=== PATIENT | male | born 1960 | race African-American/Black ===

== ENCOUNTER 2019-01-19 07:46 | Inpatient (IN) ==
--- NOTE | 2018-06-30 15:39 | History and Physical Report ---
DATE OF ADMISSION: 07/05/2018 CHIEF COMPLAINT: Left hip pain. HISTORY OF PRESENT ILLNESS: The patient is a 57-year-old incarcerated gentleman presented to our office for evaluation of the left hip pain and disability. X-rays revealed severe, end-stage osteoarthritis. Due to ongoing pain and disability, he now desires to proceed with left total hip arthroplasty. PAST MEDICAL HISTORY: Hypertension, hypercholesterolemia, type 1 diabetes. PAST SURGICAL HISTORY: Right ALEXA, appendectomy. MEDICATIONS: Amlodipine 5 mg daily, aspirin 81 mg daily, cholestyramine 1 packet daily, docusate sodium 100 mg twice daily, lisinopril 10 mg twice daily, Humulin R insulin as directed, Lantus insulin as directed, glucose daily as needed. ALLERGIES: No known drug allergies. SOCIAL HISTORY AND REVIEW OF SYSTEMS: Noncontributory. PHYSICAL EXAMINATION: GENERAL: Well-nourished, well-developed male who appears stated age. HEENT: Normocephalic, atraumatic, extraocular movements intact, oropharynx pink and moist. NECK: Supple without adenopathy. LUNGS: Clear to auscultation bilaterally. HEART: Regular rate and rhythm. ABDOMEN: Soft, nontender, nondistended. EXTREMITIES: The upper extremities are within normal limits. The left hip demonstrates limited range of motion. There is limitation of active and passive internal/external rotation with pain at end range. X-RAYS: X-rays were reviewed. He has end-stage osteoarthritis with complete loss of the joint space. There are large osteophytes about the femoral head and acetabulum. There are cystic changes about the femoral head and acetabulum. ASSESSMENT: Left hip degenerative joint disease. PLAN: Risks versus benefits were discussed, consent was obtained. Will proceed with left total hip arthroplasty as indicated.
--- NOTE | 2018-07-01 14:41 | Anesthesiology Consultation ---
Date of Service July 01, 2018 Assessment & Plan (1) Encounter for pre-operative examination: CHECK BSG AM DOS Chart Review Chart Review: Acceptable Risk for Surgery (Pending labs) and Patient NOT seen in Pre Admission Testing History Surgery Operation Date: 07/05/18 09:40 Proposed Procedures p Left Total Hip Arthroplasty - David Betancourt MD Height/Weight Height: 5 ft 9 in Weight: 79.379 kg Allergies Allergy/AdvReac Type Severity Reaction Status Date / Time No Known Allergies Allergy Verified 07/01/18 10:20 Medications Home Medications Medication Instructions Recorded Confirmed Last Taken amlodipine 5 mg PO 189907/01/18 07/01/18 Unknown aspirin [Aspirin Low Dose] 81 mg PO 189907/01/18 07/01/18 Unknown cholestyramine (with sugar) 4 g PO 189907/01/18 07/01/18 Unknown docusate sodium 100 mg PO BID 07/01/18 07/01/18 Unknown insulin glargine [Lantus U-100 38 unit SUBCUT 1630 07/01/18 07/01/18 Unknown Insulin] insulin regular human [Humulin R 1 sliding scale dose SUBCUT UD 07/01/18 07/01/18 Unknown Regular U-100 Insuln] lisinopril 10 mg PO BID 07/01/18 07/01/18 Unknown Past Medical History Medical History Degenerative joint disease Diabetes IDDM. UNSURE IF TYPE 1 OR TYPE 2 Hyperlipidemia Hypertension Osteoarthritis Past Surgical History Surgical History History of appendectomy History of total hip arthroplasty RIGHT Social History Smoking Status: Never smoker Do You Dip or Chew Tobacco: No Hx Substance Use: No Testing Electrocardiogram Date: 06/29/18 Findings: + NSR @ (97 with possible PACs with aberrant conduction) Chest X-Ray Date: 06/29/18 Findings: + NAD
--- NOTE | 2019-01-18 08:55 | Anesthesiology Consultation ---
Date of Service January 18, 2019 Assessment & Plan (1) Encounter for pre-operative examination: Chart Review Chart Review: Acceptable Risk for Surgery (pending labs) and Patient NOT seen in Pre Admission Testing Consults Requested none History Surgery Operation Date: 07/05/18 07:00 Proposed Procedures p Left Total Hip Arthroplasty - David Betancourt MD Operation Date: 01/19/19 10:10 Proposed Procedures p Left Total Hip Arthroplasty - Harley Berrios DO Height/Weight Height: 5 ft 9 in Weight: 88.952 kg Allergies Allergy/AdvReac Type Severity Reaction Status Date / Time No Known Allergies Allergy Verified 07/01/18 10:20 Medications Home Medications Medication Instructions Recorded Confirmed Last Taken amlodipine 5 mg PO DAILY 07/01/18 12/09/18 Unknown aspirin [Aspirin Low Dose] 81 mg PO DAILY 07/01/18 12/09/18 Unknown insulin regular human [Humulin R 1 sliding scale dose SUBCUT UD 07/01/18 12/09/18 Unknown Regular U-100 Insuln] lisinopril 10 mg PO BID 07/01/18 12/09/18 Unknown insulin NPH and regular human 30 unit SUBCUT BID 12/09/18 12/09/18 Unknown [Humulin 70/30 U-100 Insulin] rosuvastatin 10 mg PO DAILY 12/09/18 12/09/18 Unknown Past Medical History Medical History Diabetes IDDM. UNSURE IF TYPE 1 OR TYPE 2 Hx of major depression Hyperlipidemia Hypertension Osteoarthritis Past Surgical History Surgical History History of appendectomy History of total hip arthroplasty RIGHT Social History Smoking Status: Unknown if ever smoked Do You Dip or Chew Tobacco: No Hx Substance Use: No Testing Electrocardiogram Date: 06/29/18 Findings: + NSR @ (97 with possible PACs with aberrant conduction) Chest X-Ray Date: 06/29/18 Findings: + NAD
--- NOTE | 2019-01-19 06:07 | History & Physical Report ---
Date of Service January 19, 2019 Assessment & Plan (1) Osteoarthritis of left hip: Schedule left hip ALEXA for 01.19.19. All potential risks, benefits, complications, alternatives, and rehab have been discussed with the patient and he wishes to proceed. Plan for discharge back to [facility] with ASA 81 mg BID x 4 wks for DVT prophylaxis. History of Present Illness Chief Complaint: left hip pain Primary Care Provider: SAMEER Gomez This is a patient who had been treated for chronic left hip pain for many years. He has failed all conservative managements and now the pain is worsening. He is being set up for a left total hip arthroplasty. Allergies Allergy/AdvReac Type Severity Reaction Status Date / Time No Known Allergies Allergy Verified 07/01/18 10:20 Home Medications Home Medications Medication Instructions Recorded Confirmed Type amlodipine 5 mg PO DAILY 07/01/18 12/09/18 History aspirin [Aspirin Low Dose] 81 mg PO DAILY 07/01/18 12/09/18 History insulin regular human [Humulin R 1 sliding scale dose SUBCUT UD 07/01/18 12/09/18 History Regular U-100 Insuln] lisinopril 10 mg PO BID 07/01/18 12/09/18 History insulin NPH and regular human 30 unit SUBCUT BID 12/09/18 12/09/18 History [Humulin 70/30 U-100 Insulin] rosuvastatin 10 mg PO DAILY 12/09/18 12/09/18 History Past Med/Surg History Medical History Diabetes IDDM. UNSURE IF TYPE 1 OR TYPE 2 Hx of major depression Hyperlipidemia Hypertension Osteoarthritis Surgical History History of appendectomy History of total hip arthroplasty RIGHT Social History Current Living Situation: Other Current Living Situation Comment: [facility] Smoking Status: Unknown if ever smoked Hx Substance Use: No Physical Exam Constitutional: well developed and well nourished; no acute distress ENMT: external ear and nose normal, oropharynx normal Neck: trachea midline, no thyromegaly Respiratory: normal respiratory effort, lungs clear to auscultation Cardiovascular: Rate/Rhythm: regular rate and regular rhythm Gastrointestinal (Abdomen): normal bowel sounds, soft, nontender, no hepatosplenomegaly Musculoskeletal: Gait: + limp (left) Hip: + limited ROM of hip (left hip with internal/external rotation), + hip ROM with crepitation (left), + joint line tenderness (left groin) and + PETER test positive (left); no skin erythema and no ecchymosis Skin: no rashes, warm and dry Neurologic: normal touch/pain/proprioception Psychiatric: A+Ox3, euthymic affect Lymphatic: no cervical or axillary lymphadenopathy
[~2019-01-19 07:46] MED LIST: ACETAMINOPHEN 500 MG TAB PO SCH; BUPIVACAINE 0.5 % 5 MG/1 ML PF 10ML VIAL ONE; CEFAZOLIN 1000MG 1,000 MG/7.5 ML SYR IV SCH; CEFAZOLIN 2000MG 2,000 MG/15 ML SYR IV SCH; CeleBREX 200 MG CAP PO SCH; FAMOTIDINE 20 MG TAB PO SCH; GABAPENTIN 300 MG PO SCH; GABAPENTIN 600 MG DOSE PO SCH; LR 15ML/HR IV SCH; LR 500ML BOLUS, THEN 15ML/HR IV SCH; METOCLOPRAMIDE HCL 10 MG TABLET PO SCH; MISSING PHYSICIAN SIGNATURE ON ORDER SCH; ROPIVACAINE 0.5% HCL/PF 150 MG, BUPIVACAINE 0.5% MPF 30 ML, EPINEPHrine 30MG/30ML (OR U... INSTIL SCH; TRANEXAMIC ACID 1,000 MG **IV Intra-op IV SCH; TRANEXAMIC ACID 1,000 MG **IV Pre-op IV SCH; dexAMETHasone 4 MG TAB PO SCH
[2019-01-19] MEDS ORDERED: ROPIVACAINE 0.5% HCL/PF 150 MG, BUPIVACAINE 0.5% MPF 30 ML, EPINEPHrine 30MG/30ML (OR U... INFIL SCH (08:15)
[2019-01-19 08:18] LABS: Basophils # (auto) 0.02 K/uL (0-0.2); Basophils % (auto) 0.5 %; Eosinophils # (auto) 0.13 K/uL (0-0.5); Eosinophils % (auto) 3.1 %; Hematocrit (blood only) 46.5 % (42-52); Hemoglobin 15.4 g/dL (14.0-18.0); Lymphocytes # (auto) 1.46 K/uL (1.2-3.4); Lymphocytes % (auto) 34.8 %; Mean Corpuscular Hemoglobin 29.6 pg (25-34); Mean Corpuscular Volume 89.3 fL (80-100); Mean Platelet Volume 10.2 fL (7.4-10.4); Monocytes # (auto) 0.32 K/uL (0.11-0.59); Monocytes % (auto) 7.6 %; Neutrophils # (auto) 2.26 K/uL (1.4-6.5); Platelet Count 319 K/uL (130-400); RDW Coefficient of Variation 13.3 % (11.5-14.5); RDW Standard Deviation 43.8 fL (36.4-46.3); Red Blood Count 5.21 M/uL (4.7-6.1); White Blood Count 4.19 K/uL (4.8-10.8)
[2019-01-19 08:19] LABS: Mean Corpuscular Hgb Conc 33.1 g/dL (32-36)
--- NOTE | 2019-01-19 08:22 | History & Physical Bridge Note ---
Date of Service January 19, 2019 History & Physical Bridge Note I have examined the patient, reviewed the History & Physical and in the interval since the performance of the History & Physical I have noted the following changes of clinical significance: no changes noted
[2019-01-19 08:29] LABS: Partial Thromboplastin Ratio 1.1; Partial Thromboplastin Time 28.7 Seconds (21.0-31.0); Prothrombin Time 10.2 Seconds (9.0-12.0)
[2019-01-19 08:39] LABS: Calcium 9.9 mg/dl (8.5-10.1); Creatinine Clr Calc Pharmacy 75.1 ml/min; Est GFR (African American) 74.9; Est GFR (Non-African American) 64.6
[2019-01-19] MEDS ORDERED: MIDAZOLAM HCL 1 MG/ML 2ML VIAL ONE ×2 (08:51)
[2019-01-19] MEDS ORDERED: LIDOCAINE HCL 2% 2 ML VIAL/AMP(20MG/ML) INFIL ONE (08:55)
[2019-01-19] MEDS ORDERED: PROPOFOL IV EMULSION 10 MG/ML 20 ML VIAL IV ONE ×4 (08:55→16:21)
[2019-01-19] MEDS ORDERED: HYDROmorphone INJ 1 MG/ML SYRINGE IV PRN (09:19)
[2019-01-19] MEDS ORDERED: ATROPINE SULFATE 0.1 MG/ML 10ML SYR IV PRN (09:19)
[2019-01-19] MEDS ORDERED: PHENYLEPHRINE 100MCG/ML 5ML SYR IV PRN (09:19)
[2019-01-19] MEDS ORDERED: ePHEDrine sulfate 50 MG/ML AMP IV PRN (09:19)
[2019-01-19] MEDS ORDERED: KETOROLAC 30 MG/ML VIAL IV PRN (09:19)
[2019-01-19] MEDS ORDERED: ONDANSETRON INJ 2 MG/ML 2 ML VIAL IV PRN (09:19)
[2019-01-19 09:56] LABS: Estimated Average Glucose 192 mg/dl; Hemoglobin A1C 8.3 % (4.5-5.6)
[2019-01-19] MEDS ORDERED: BACITRACIN INJ 50,000 UNIT VIAL ONE (13:57)
[2019-01-19] MEDS ORDERED: PHENYLEPHRINE HCL 10 MG/ML VIAL ONE (14:48)
--- NOTE | 2019-01-19 16:36 | Post Operative Brief Note ---
Immediate Post Op Note v1 Date of Surgery January 19, 2019 Pre & Post Diagnosis Operation Date: 07/05/18 07:00 <No data on this case meets the specified criteria> Operation Date: 01/19/19 10:10 Pre-Op Diagnosis: DEGENERATIVE JOINT DISEASE LEFT HIP, OSTEOARTHRITIS LEFT HIP Post-Op Diagnosis: left hip DEGENERATIVE JOINT DISEASE, OSTEOARTHRITIS LEFT HIP Procedure Operation Date: 07/05/18 07:00 <No data on this case meets the specified criteria> Operation Date: 01/19/19 10:10 Actual Procedures p Left Total Hip Arthroplasty, UNCEMENTED Maykel Accolade size 5 femur, 56 mm Trident PSL acetabular shell, 36 mm Trident X3 10 degree polyethylene, Torx 6.5 mm bone screws x2, Biolox delta ceramic femoral head 36 mm +0 mm neck length (Left) - Harley Berrios DO Surgeon Harley Berrios DO Leather Sponger Nahun Serrato PA-C Estimated Blood Loss 20 Findings Consistent with Post-Op Diagnosis Specimens Bone and tissue left hip Drains Hemovac Drain (dual drain) Anesthesia Type Spinal MAC Complications none Disposition Accompanied Patient To Recovery: No Disposition: Recovery Room
--- NOTE | 2019-01-19 17:25 | XRay Report ---
XR hip 1V LT w pelvis CLINICAL HISTORY: IN PACU - A/P PELVIS and LATERAL HIP COMPARISON: None. DISCUSSION: Anatomic alignment posttotal left hip arthroplasty. Could contact between prosthetic and underlying bone. Expected postoperative soft tissue change. IMPRESSION: Anatomic alignment posttotal left hip arthroplasty. The above report was generated using voice recognition software. It may contain grammatical, syntax or spelling errors. Electronically signed by: Beto Linda M.D. 01/19/2019 5:23 PM
--- NOTE | 2019-01-19 17:27 | Anesthesiology Progress Note ---
Date of Service January 19, 2019 Anesthesia Post Procedure Vital Signs Vital Signs: Temp Pulse Pulse Resp BP Pulse Ox 01/19/19 17:15 36.5 C 91 H 20 124/86 100 01/19/19 17:05 36.5 C 101 H 18 118/67 971 H 01/19/19 16:56 36.5 C 99 H 20 99/73 L 98 01/19/19 08:19 36.4 C L 86 16 171/117 H 99 Transfer of Care Handoff Completed per policy Notes Mental Status: alert / awake / arousable Patient Amnestic to Procedure: Yes Nausea / Vomiting: adequately controlled Pain: adequately controlled Airway Patency, RR, SpO2: stable & adequate BP & HR: stable & adequate Hydration State: stable & adequate Neuraxial Anesthesia: was administered and sensory block is resolving Anesthetic Complications: no major complications apparent and Pt Satisfied with anesthetic care
[2019-01-19] MEDS ORDERED: HYDROmorphone INJ 0.5 MG/0.5 ML SYR IV PRN (18:22)
[2019-01-19] MEDS ORDERED: OXYCODONE HCL IR 5 MG TAB (IMMEDIATE RELEASE) PO PRN (18:22)
[2019-01-19] MEDS ORDERED: NALOXONE HCL 0.4 MG/1 ML VIAL/CARP IV PRN (18:22)
[2019-01-19] MEDS ORDERED: MAGNESIUM HYDROXIDE SUSP 30 ML UDC PO PRN (18:22)
[2019-01-19] MEDS ORDERED: BISACODYL 10 MG SUPP PR PRN (18:22)
[2019-01-19] MEDS ORDERED: TAMSULOSIN HCL 0.4 MG CAP PO PRN (18:22)
[2019-01-19] MEDS ORDERED: METOCLOPRAMIDE HCL INJ 5 MG/ML 2 ML VIAL IV PRN (18:22)
[2019-01-19] MEDS ORDERED: DEXTROSE 50% 50 ML SYRINGE IV PRN ×2 (18:45→22:14)
[2019-01-19] MEDS ORDERED: GLUCOSE 40% GEL 15 GM TUBE PO PRN ×2 (18:45→22:14)
[2019-01-19] MEDS ORDERED: CARBOHYDRATES FOR HYPOGLYCEMIA PO PRN ×2 (18:45→22:14)
[2019-01-19] MEDS ORDERED: GLUCAGON FOR INJ 1 MG VIAL IM PRN (18:45)
[2019-01-19] MEDS ORDERED: GLUCOSE 10 TABS/TUBE PO PRN ×2 (18:45→22:14)
[2019-01-19] MEDS: INSULIN ASPART 100 UNITS/ML 3 ML PEN SC SCH ×3 (19:19→23:56)
[2019-01-19] MEDS: INSULIN HUMAN 70% NPH/30% REGULAR SC SCH (19:21)
[2019-01-19] MEDS: KETOROLAC 30 MG/ML VIAL IV SCH ×2 (19:25→23:57)
--- NOTE | 2019-01-19 20:55 | Hospitalist Consultation ---
Date of Consultation January 19, 2019 Assessment & Plan (1) Osteoarthritis of left hip: as below (2) Encounter for pre-operative examination: tolerated procedure well Pain management and DVT prophylaxis as per primary team Currently have him on aspirin twice daily (3) Diabetes 1.5, managed as type 2: continue insulin check HgbA1c (4) Essential hypertension: Currently controlled continue home blood pressure medications , Amlodipine, lisinopril Continue to follow-up vitals per shift Appears to have slight tachycardia could be postoperative, if it continues we will transfer him to a telemetry bed (5) Dyslipidemia: Continue Crestor Check lipids panel History of Present Illness Attending Physician: Harley Berrios, DO 58 years old man with past medical history of essential hypertension, diabetes mellitus type 2 insulin requiring, dyslipidemia and obesity who was admitted to the hospital for an elective left total hip arthroplasty. Patient does have history of severe arthritis status post right hip arthroplasty. Continued to have left hip pain was evaluated by Dr. Berrios who recommended hip replacement. Unfortunately his blood sugar was not controlled and his hemoglobin A1c was 10, 6 months ago, he worked on his diabetes and took his insulin regularly last hemoglobin A1c check was 7 that was about 3 months ago. Procedure went uneventful and currently he is asymptomatic. We were consulted for medical management to his medical condition. Allergies Allergy/AdvReac Type Severity Reaction Status Date / Time No Known Allergies Allergy Verified 01/19/19 08:16 Home Medications Home Medications Medication Instructions Recorded Confirmed Type amlodipine 5 mg PO DAILY 07/01/18 01/19/19 History aspirin [Aspirin Low Dose] 81 mg PO DAILY 07/01/18 01/19/19 History insulin regular human [Humulin R 1 sliding scale dose SUBCUT UD 07/01/18 01/19/19 History Regular U-100 Insuln] lisinopril 10 mg PO BID 07/01/18 01/19/19 History insulin NPH and regular human 30 unit SUBCUT BID 12/09/18 01/19/19 History [Humulin 70/30 U-100 Insulin] rosuvastatin 10 mg PO DAILY 12/09/18 01/19/19 History acetaminophen [Tylenol Extra 1,000 mg PO Q8 #100 tab 01/19/19 Rx Strength] aspirin [Ecotrin Low Strength] 81 mg PO BID #60 tab 01/19/19 Rx celecoxib [Celebrex] 200 mg PO BID #60 cap 01/19/19 Rx oxycodone 5 - 10 mg PO Q4H PRN #40 tab 01/19/19 Rx Patient History Medical History Diabetes IDDM. UNSURE IF TYPE 1 OR TYPE 2 Hx of major depression Hyperlipidemia Hypertension Osteoarthritis Surgical History History of appendectomy History of total hip arthroplasty RIGHT Social History Current Living Situation: Other Current Living Situation Comment: [facility] Smoking Status: Unknown if ever smoked Hx Substance Use: No Review of Systems Review of Systems: Review of system Constitutional: No fever / no chills / no sweats / no weakness / no fatigue Eyes: no blurring of vision / no eye pain / no discharge / no redness ENT: no hearing loss / no epistaxis /no swallowing problems Respiratory: no cough / no wheezing / no SOB / no hemoptysis Cardiovascular: no Chest pain / no lower extremity edema / no palpitation Abdomen: no pain / no nausea / no vomiting / no constipation Musculoskeletal: no joint pain / no muscle pain / no joint swelling Genitourinary: no dysuria / no incontinence / no urinary retention Neurologic: no focal weakness / no numbness/tingling / no ataxia Psychiatric: no depression symptoms / no anxiety / no insomnia Endocrine: no excessive thirst / no excessive urination Hematologic: no abnormal bleeding / no bruising / no LN swelling Skin: No rash / no pallor Physical Exam Physical Exam: Physical examination General patient appears to be comfortable, not in acute distress HEENT: Atraumatic , normocephalic /no jaundice /no pallor /anicteric /no dry mucous membrane /normal external ear inspection Neck: Supple /no swelling /central trach Heart: S1/S2 normal/regular rate and rhythm/no gallop /no rub /no murmur Lungs: Clear to auscultation bilaterally/normal chest with expansion/no rhonchi /no rales/no wheezing/no use of accessory muscles of respiration Abdomen: Soft/nontender/no guarding/no rebound/no organomegaly/no pulsatile mass Musculoskeletal: No swelling/no edema/no tenderness/normal range of motion Neuro exam: Awake alert oriented 3/cranial nerves II through XII appear to be intact/sensation intact/moves all extremities/no abnormal movements Psychiatric evaluation: No depressed mood/normal affect Skin: No rash on exposed skin area/no erythema Extremity: Normal pulse/no pitting edema/no clubbing or cyanosis In both feet his toes appears to be normal, no signs of ischemia, sensation intact in both feet, he was able to move his toes in both feet Results & Data Vital Signs (Past 12 Hours) Vital Signs Temp Pulse Pulse Resp BP Pulse Ox 01/19/19 20:13 36.5 C 108 H 16 144/98 H 96 01/19/19 19:28 36.5 C 109 H 16 134/89 97 01/19/19 18:42 36.2 C L 88 16 140/93 97 01/19/19 18:10 36.4 C L 98 H 137/84 97 01/19/19 17:55 36.6 C 96 H 16 113/76 95 01/19/19 17:45 36.6 C 83 17 123/83 94 01/19/19 17:35 36.6 C 89 17 118/84 96 01/19/19 17:25 36.6 C 93 H 17 119/88 99 01/19/19 17:15 36.5 C 91 H 20 124/86 100 01/19/19 17:05 36.5 C 101 H 18 118/67 971 H 01/19/19 16:56 36.5 C 99 H 20 99/73 L 98 PG Care Time/CCT Total # of Minutes Spent Total Time Spent with Patient: Total time spent is greater than 50% in coordination of care (as documented) at patient's floor/unit and/or counseling patient:
[2019-01-19] MEDS: SENNA 8.6 MG TAB PO SCH (21:10)
[2019-01-19] MEDS: LISINOPRIL 10 MG TAB PO SCH (21:10)
[2019-01-19] MEDS: ASPIRIN 81 MG ECTAB PO SCH (21:11)
[2019-01-19 21:33] LABS: Appearance Urine Cloudy (Clear); Bacteria Urine Automated Negative (Negative); Bilirubin Urine Negative (Negative); Blood Urine Negative (Negative); Color Urine Yellow; Glucose Urine UA 3+ (Negative); Ketones Urine Trace (Negative); Leukocyte Esterase Urine Negative (Negative); Nitrite Urine Negative (Negative); Protein Urine Negative (Negative); RBC Urine Automated 0-4 /hpf (0-4); Specific Gravity Urine 1.022 (1.000-1.030); Urobilinogen Urine Negative (Negative)
[2019-01-19] MEDS: ACETAMINOPHEN 500 MG TAB PO SCH (21:34)
[2019-01-19] MEDS: CEFAZOLIN 2000MG 2,000 MG/15 ML SYR IV SCH (21:37)
[2019-01-19] MEDS: DOCUSATE SODIUM 100 MG CAP PO SCH (21:43)
[2019-01-19] MEDS ORDERED: METOPROLOL TARTRATE 25 MG TAB PO STA (22:01)
[2019-01-19] MEDS ORDERED: SODIUM CHLORIDE 0.9% 1000ML 1,000 ML IV SCH (22:03)
[2019-01-19] MEDS ORDERED: GLUCAGON FOR INJ 1 MG VIAL SQ PRN (22:14)
[2019-01-19] MEDS ORDERED: PHARMACY GLYCEMIC MGMT CONSULT PRN (22:16)
[2019-01-19] MEDS ORDERED: TRANEXAMIC ACID 1,000 MG in 0.9 % SODIUM CHLORIDE 100 ML IV SCH (23:00)
[2019-01-20] MEDS: SODIUM CHLORIDE 0.9% 1000ML 1,000 ML IV SCH ×2 (00:23→12:42)
[2019-01-20] MEDS ORDERED: INSULIN ASPART 100 UNITS/ML 3 ML PEN SC SCH (02:00)
--- NOTE | 2019-01-20 02:47 | Operative Report ---
DATE OF OPERATION: 01/19/2019 PREOPERATIVE DIAGNOSES: 1. Left hip degenerative joint disease. 2. Left hip osteoarthritis. 3. Left hip pain. POSTOPERATIVE DIAGNOSES: 1. Left hip degenerative joint disease. 2. Left hip osteoarthritis. 3. Left hip pain. PROCEDURES: Left total hip arthroplasty using uncemented Angela 56 mm, PSL acetabular cup with a 32-mm Biolox ceramic head, size 5 femur, a +0 neck with two 6.5 mm torque screws. SURGEON: Harley Berrios DO PROJECT DEVELOPMENT LEADER: Nahun Serrato PA-C, who was present for patient positioning, sterile prep and drape, management of retractors and instruments. He was present through the critical portions of the case including wound closure, application of sterile dressing and transport of the patient to recovery. ANESTHESIA: Spinal, MAC with intra-articular local. SPECIMENS: Bone and tissue, left hip. DRAINS: Hemovac x2. COMPLICATIONS: None. BLOOD LOSS: 20 mL. PERTINENT HISTORY: This is a 58-year-old senior care inmate, who had progressive chronic and worsening left hip pain and degenerative arthritis. He attempted and failed conservative management including physician-directed, home exercises, anti-inflammatories, rest, observation, use of an assistive device and modification of activities and shoe wear. Radiographs demonstrate bone on bone arthritis with complete loss of joint space, marginal osteophytes, subchondral sclerosis and subchondral cysts in the left hip. The patient was then scheduled for surgery as indicated. DESCRIPTION OF PROCEDURE: The patient was taken to the Operating Suite and placed supine on the Operating Room table after identification of the consent and identification of the proper operative site the patient was sedated. The patient had previously received a spinal epidural anesthetic. The patient was then placed in the right lateral decubitus position with the affected side up and Stulberg positioning device then used to maintain lateral position of the patient. All bony prominences were properly padded and protected. Axillary roll was placed as standard and the leg lengths were determined to be essentially equal and then the left hip was then sterilely prepped and draped in the usual fashion. 10-blade scalpel incision was made laterally over the greater trochanter. The incision was deepened through the subcutaneous tissue and meticulous hemostasis with electrocautery. Further deepening of the wound through the layer of the fascia was performed with electrocautery and iliotibial band was then incised with electrocautery. Next, Charnley retractor was placed bother anteriorly and posteriorly at the level of the gluteus tendon. Next, electrocautery was used to make an incision in the vastus lateralis and then sweep was made toward the anterior aspect of the patient along the course of the femoral neck and head. Abductor split was then completed. The gluteus minimus and capsule were then incised and then soft tissue was dissected anteriorly. Next as the soft tissue was dissected anteriorly the lesser trochanter was clearly identified and hip was dislocated with relative ease. Hypertrophic osteophytes were noted circumferentially. The hip joint was noted to be noticeably tight. Next the sagittal saw was used to resect the proximal portion of the femoral neck and head approximately one fingerbreadth proximal to the lesser trochanter. Head was then removed and next the labrum was excised from the acetabulum with a 27 blade scalpel and long forceps. Next the wound was irrigated with pulsatile lavage and the pulvinar was then excised from the acetabulum. Appropriate retractors were placed anteriorly superiorly and posteriorly. Next initial acetabular reamer was placed 44 mm medialized to the medial wall and then sequential reaming was performed to size 56 mm. Trial cage was then placed and noted to be stable with excellent fit. Next the wound was irrigated with pulsatile lavage with bacitracin additive and 56 mm Maykel trident PSL cup was impacted and then two 6.5 mm torque screws were used to stabilize the acetabular shell. Next X3 poly 32 mm was impacted into the shell. Lap sponge was placed over to protect it. Next, attention was turned toward the proximal femur. Box osteotome was used to resect proximal portion of bone followed by first pass small reamer. Next, sequential broaching was performed up to size 5 and the 5 trial was placed followed by +0 32 mm trial head. Next, it was reduced and had excellent fit and feel with minimal shuck and excellent stability in all planes and range of motion. Leg lengths were restored and next all trial implants were removed. The wound was copiously irrigated with pulsatile lavage and size 5 Accolade TMZF x 132 degree final stem was impacted. Next, Biolox ceramic 32 mm head +0 neck was impacted. The construct was reduced. Range of motion was performed and noted to be completely stable with excellent range of motion, improved to greater degree than prior to surgery. The periarticular hip Was injected with Ortho mix solution for postop pain control. The incision was Soaked with sterile dilute Betadine for peer to proximal 3 minutes. The Incision was then irrigated with pulsatile lavage with bacitracin until clear. Next, two 10 Maori single Hemovac drains were placed exiting anterolaterally. Wound was irrigated with pulsatile lavage. Next a #5 Fiberwire suture was used to close the capsule and gluteus minimum via two small bone tunnels made with 2.4 mm drill bit in the greater trochanter. After Fiberwire closure was completed and noted to be stable then 10 Maori drains were placed followed by closure of the vastus lateralis and the gluteus medius. This was closed with #1 Vicryl sutures. Next, the iliotibial band was closed using interrupted [id number] #1 Vicryl sutures. Next, final irrigation was performed with pulsatile lavage and dermis was closed using buried interrupted 2-0 Vicryl suture. The skin was closed with skin zeeshan. Sterile compressive dressing was applied. The patient was then placed supine and taken to recovery in stable condition. I attest to the content of the Intraoperative Record and any orders documented therein. Any exceptions are noted below. FAB
[2019-01-20] MEDS: INSULIN ASPART 100 UNITS/ML 3 ML PEN SC SCH ×7 (04:28→23:43)
[2019-01-20] MEDS: ACETAMINOPHEN 500 MG TAB PO SCH ×3 (06:02→20:43)
[2019-01-20] MEDS: KETOROLAC 30 MG/ML VIAL IV SCH ×4 (06:03→23:44)
[2019-01-20] MEDS: CEFAZOLIN 2000MG 2,000 MG/15 ML SYR IV SCH (06:24)
[2019-01-20 07:48] LABS: BUN Creatinine Ratio 15.1 (10-20); Calcium 8.5 mg/dl (8.5-10.1); Creatinine Clr Calc Pharmacy 68.5 ml/min; Est GFR (African American) 66.4; Est GFR (Non-African American) 57.2; Magnesium 1.9 mg/dl (1.8-2.4); Potassium 4.1 mmol/L (3.5-5.1)
[2019-01-20 07:56] LABS: Bilirubin,Total 0.3 mg/dl (0.2-1); Globulin 3.1 gm/dl (2.5-4.0); Thyroid Stimulating Hormone 0.249 uIu/ml (0.300-4.500); Total Protein 6.1 gm/dl (6.4-8.2)
[2019-01-20] MEDS ORDERED: dexAMETHasone 4 MG TAB PO SCH (08:00)
[2019-01-20] MEDS: ASPIRIN 81 MG ECTAB PO SCH ×2 (08:23→20:43)
[2019-01-20] MEDS: AMLODIPINE BESYLATE 5 MG TAB PO SCH (08:23)
[2019-01-20] MEDS: LISINOPRIL 10 MG TAB PO SCH ×2 (08:23→20:43)
[2019-01-20] MEDS: ROSUVASTATIN CALCIUM 10 MG TAB PO SCH (08:24)
[2019-01-20] MEDS: MULTIVITAMIN TAB PO SCH (08:24)
[2019-01-20] MEDS: INSULIN HUMAN 70% NPH/30% REGULAR SC SCH ×2 (08:24→17:22)
[2019-01-20] MEDS: DOCUSATE SODIUM 100 MG CAP PO SCH ×2 (08:28→20:42)
[2019-01-20 08:30] LABS: Estimated Average Glucose 192 mg/dl; Hemoglobin A1C 8.3 % (4.5-5.6)
--- NOTE | 2019-01-20 08:36 | Orthopedic Progress Note ---
Date of Service January 20, 2019 Assessment & Plan (1) Osteoarthritis of left hip: POD #1 s/p left ALEXA Will keep hemovac in place until tomorrow. WBAT LLE PT/OT ASA for DVT prophylaxsis. D/C planning--will return to [facility] upon d/c. Probable tomorrow if BP and pulse remain normal. Subjective No complaints with the left hip. Pain is controlled. Denies CP, SOB, LH. Physical Exam 2 Constitutional: well developed and well nourished; no acute distress ENMT: external ear and nose normal, oropharynx normal Neck: trachea midline, no thyromegaly Respiratory: normal respiratory effort, lungs clear to auscultation Cardiovascular: Rate/Rhythm: regular rate and regular rhythm Gastrointestinal (Abdomen): normal bowel sounds, soft, nontender, no hepatosplenomegaly Musculoskeletal: Hip: + surgical incision (left hip dressing C/D/I. ) and + surgical drain present (hemovac has drained 215 cc.); no skin erythema and no ecchymosis Skin: no rashes, warm and dry Neurologic: normal touch/pain/proprioception Psychiatric: A+Ox3, euthymic affect Lymphatic: no cervical or axillary lymphadenopathy Results & Data Vital Signs (Past 12 Hours) Vital Signs Temp Pulse Pulse Resp BP BP Pulse Ox 01/20/19 07:00 36.6 C 82 18 132/80 96 01/20/19 04:00 36.5 C 79 18 125/86 97 01/19/19 23:17 36.5 C 107 H 18 155/97 H 94 01/19/19 21:09 115 H 176/93 H
[2019-01-20] MEDS ORDERED: NovoLIN-N (NPH) PER UNIT CHARGE SQ ONE (09:45)
--- NOTE | 2019-01-20 10:10 | Radiation OncologyConsultation ---
Date of Consultation January 20, 2019 Assessment & Plan (1) Heterotopic ossification: Assessment: Mr. Collins is a 58-year-old gentleman status post left total hip arthroplasty by Dr. Berrios on 01/19/2019. During the procedure, Dr. Berrios did note development of heterotopic ossification. Dr. Berrios has requested consideration of prophylactic radiation therapy to prevent the redevelopment of heterotopic ossification. I am now seeing the patient in [place] [facility] [place]. Treatment Options: 1. Prophylactic radiation therapy to left hip. 2. High-dose NSAIDs. 3. Observation. Recommendation: Prophylactic radiation therapy to left hip to prevent development of heterotopic ossification. Plan: 1. CT simulation today for treatment planning for radiation therapy. 2. Plan for delivery of radiation therapy today. 3. Continue all other care as per primary team. 4. Follow-up on an as-needed basis. Rationale/Explanation of Treatment: I did explain the indications, alternatives, benefits, risks and side effects of external beam radiation therapy. I did explain the most common side effects including, but not limited to, skin eryt sukhwinder, skin breakdown, hyperpigmentation, telangiectasia, wound complications, perianal fistula development, fistula formation, bowel obstruction, bowel perforation, dysuria, increased urinary frequency, urgency, diarrhea, constipation, melena, hematochezia, hematuria, radiation cystitis, radiation proctitis, fatigue, decreased blood counts, wound complications from surgery, rectal incontinence, secondary malignancy development. I did explain the procedures and daily process of radiation therapy. The patient understands and would be willing to consent to treatment. The patient had multiple questions which were answered to his full satisfaction. Thank you for allowing us to participate in the care of this patient. This chart was completed in part utilizing [employer] Speech Voice Recognition software. Attempts were made to minimize the grammatical errors, random word insertions, pronoun errors and incomplete sentences. Any formal questions or concerns about the content, text or information contained within the body of this dictation should be directly addressed to the provider for clarification. Claudia Azul MD Department of Radiation Oncology [facility] History of Present Illness Attending Physician: Harley Berrios DO History of Present Illness HPI: 58-year-old [facility] patient with history of right hip total hip arthroplasty now with left hip osteoarthritis who presents to the hospital for surgery by Dr. Berrios with a left total hip arthroplasty. 01/19/2019. Left total hip arthroplasty by Dr. Berrios. Findings at the time of the procedure included heterotopic osteophytes concerning for heterotopic ossification development. 01/19/2019. Hip and pelvis x-ray. IMPRESSION: Anatomic alignment posttotal left hip arthroplasty. Currently, the patient is doing relatively well. He has no significant complaints. Allergies Allergy/AdvReac Type Severity Reaction Status Date / Time No Known Allergies Allergy Verified 01/19/19 08:16 Home Medications Home Medications Medication Instructions Recorded Confirmed Type amlodipine 5 mg PO DAILY 07/01/18 01/19/19 History aspirin [Aspirin Low Dose] 81 mg PO DAILY 07/01/18 01/19/19 History insulin regular human [Humulin R 1 sliding scale dose SUBCUT UD 07/01/18 01/19/19 History Regular U-100 Insuln] lisinopril 10 mg PO BID 07/01/18 01/19/19 History insulin NPH and regular human 30 unit SUBCUT BID 12/09/18 01/19/19 History [Humulin 70/30 U-100 Insulin] rosuvastatin 10 mg PO DAILY 12/09/18 01/19/19 History acetaminophen [Tylenol Extra 1,000 mg PO Q8 #100 tab 01/19/19 Rx Strength] aspirin [Ecotrin Low Strength] 81 mg PO BID #60 tab 01/19/19 Rx celecoxib [Celebrex] 200 mg PO BID #60 cap 01/19/19 Rx oxycodone 5 - 10 mg PO Q4H PRN #40 tab 01/19/19 Rx Patient History Medical History Diabetes IDDM. UNSURE IF TYPE 1 OR TYPE 2 Hx of major depression Hyperlipidemia Hypertension Osteoarthritis Surgical History History of appendectomy History of total hip arthroplasty RIGHT Social History Current Living Situation: Other Current Living Situation Comment: [facility] Smoking Status: Unknown if ever smoked Hx Substance Use: No Physical Exam 2 Constitutional: WD/WN, vitals as above Neck: trachea midline, no thyromegaly Respiratory: normal respiratory effort, lungs clear to auscultation Cardiovascular: RRR, no murmur, no edema Skin: no rashes, warm and dry Psychiatric: A+Ox3, euthymic affect Lymphatic: no cervical or axillary lymphadenopathy Results Additional Studies 01/19/19 17:04 XR hip 1V LT w pelvis Routine 01/20/19 CT guide rad therapy pelvis Routine Time Spent Attending I spent 40 minutes for this consultation, which included obtaining clinical information, performing a physical exam, recommending a plan of action and answering questions. Greater than 50% of the time spent was direct face to face interaction with the patient.
[2019-01-20 10:20] LABS: Basophils # (auto) 0.01 K/uL (0-0.2); Basophils % (auto) 0.1 %; Hematocrit (blood only) 32.8 % (42-52); Immature Granulocytes # (auto) 0.02 K/uL (0.00-0.02); Immature Granulocytes % (auto) 0.2 %; Lymphocytes # (auto) 1.02 K/uL (1.2-3.4); Lymphocytes % (auto) 9.9 %; Mean Corpuscular Hemoglobin 29.8 pg (25-34); Mean Corpuscular Hgb Conc 33.5 g/dL (32-36); Mean Corpuscular Volume 88.9 fL (80-100); Mean Platelet Volume 9.9 fL (7.4-10.4); Monocytes # (auto) 0.89 K/uL (0.11-0.59); Monocytes % (auto) 8.6 %; Neutrophils # (auto) 8.35 K/uL (1.4-6.5); Neutrophils % (auto) 81.2 %; Platelet Count 280 K/uL (130-400); RDW Coefficient of Variation 13.4 % (11.5-14.5); RDW Standard Deviation 43.8 fL (36.4-46.3); Red Blood Count 3.69 M/uL (4.7-6.1); White Blood Count 10.29 K/uL (4.8-10.8)
[2019-01-20] MEDS ORDERED: Nursing to Pharmacy Communication ONE (12:30)
--- NOTE | 2019-01-20 13:18 | Pharmacy Report ---
Glycemic Control Consultation - Date of Service January 20, 2019 - Scope Scope: Glycemic Pharmacist consulted by Nahun Serrato PA-C on 01/19/19 for glycemic control and to write orders per [facility] inpatient glycemic control protocol - Objective Weight: 95 kg Accuchecks BSG (last 24hrs): 01/19/19 01/19/19 01/19/19 14:03 16:58 18:35 Glucose POC Glucose 171 H 188 H 188 H 01/19/19 01/19/19 01/19/19 20:49 22:08 23:52 Glucose POC Glucose 253 H 259 H 205 H 01/20/19 01/20/19 04:28 06:53 Glucose 89 POC Glucose 97 Laboratory Data (last 24hrs): 01/20/19 06:53 Potassium 4.1 Carbon Dioxide 24 Anion Gap 8.0 Creatinine 1.37 Est Cr Clr Drug Dosing 68.5 HbA1c: Hemoglobin A1c 8.3 % (4.5-5.6) H 01/20/19 06:53 - Recent Pertinent Medications Outpatient Anti-diabetic Regimen: * Humulin 70/30 - 30 units BID * A1c = 8.3 % (01/20/19) - Assessment & Plan Assessment & Plan: ASSESSMENT: * Patient is pod #1 s/p left total hip arthroplasty * 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), hypertension, and dyslipidemia * Received dexamethasone 8 mg PO morning of 01/19 and 01/20 * Additional 10 units of NPH given this morning to cover for this dexamethasone * BSGs ranging 97-253 over past 24 hours * Received 43 units of insulin while inpatient yesterday (21 of which were basal) PLAN FOR INPATIENT GLYCEMIC CONTROL: * Basal insulin * Will continue patient's home dose of Novolin 70/30 - 30 units BIDM * Bolus insulin * NovoLog per scale ACHS or Q6hrs while NPO * Goal Range: Low 100 mg/dL - High 140 mg/dL * Correction Factor: 25 mg/dL/unit - based on total daily dose of 60 units * Nutritional / Prandial insulin per carb ratio of 1 unit per 0 grams CHO consumed * Will add 00,04 checks tonight for overnight coverage * Please note that the plan above was derived based on current level of insulin resistance and hospital stress. These recommendations are appropriate for inpatient admission only. Plan of care upon discharge will need to be reassessed to avoid potential outpatient hypo/hyperglycemia. Thank you.
--- NOTE | 2019-01-20 17:31 | Hospitalist Progress Note ---
Date of Service January 20, 2019 Assessment & Plan (1) Osteoarthritis of left hip: S/p left ALEXA with Dr. Berrios on 01/19. - Tolerated procedure well - Pain management and DVT prophylaxis as per primary team (2) Diabetes 1.5, managed as type 2: A1c was 8.3% on 01/20, indicating sub-optimal glucose control. - Orthopedics continued his home 70/30 insulin 30 units BID - Glycemic pharmacist consulted - Given 10 units of NPH to cover his dexamethas one given for the operation. - Sliding scale insulin (3) Essential hypertension: Currently controlled continue home blood pressure medications. - Continue amlodipine, lisinopril (4) Dyslipidemia: - Continue Crestor Given medical stability, Hospital Medicine team will sign off. Please re-consult with any questions or concerns. Thank you for letting us assist in the care of this patient! Subjective Doing well. No pain in the hip. Overall in good spirits. No chest pain, shortness of breath, or other concerns. Review of Systems Review of Systems: All systems reviewed & are unremarkable except as noted in HPI & below Physical Exam Constitutional: WD/WN, vitals as above Eyes: EOM intact bilaterally; no conjunctival abnormality ENMT: external ear and nose normal, oropharynx normal Neck: trachea midline, no thyromegaly normal visual inspection Respiratory: normal respiratory effort, lungs clear to auscultation no respiratory distress Cardiovascular: RRR, no murmur, no edema Gastrointestinal (Abdomen): Inspection/Auscultation: abdomen normal to inspection; abdomen not distended Musculoskeletal: no cyanosis or clubbing, extremities motor strength 5/5 Skin: no rashes, warm and dry Neurologic: moves all extremities and awake Psychiatric: Orientation: alert, oriented to person and cooperative Results & Data Vital Signs (Past 12 Hours) Vital Signs Temp Pulse Pulse Resp BP BP Pulse Ox 01/20/19 16:16 36.7 C 87 18 143/82 H 97 01/20/19 16:00 96 H 01/20/19 14:32 177/84 H 01/20/19 11:30 36.6 C 91 H 18 164/102 H 97 01/20/19 07:00 36.6 C 82 18 132/80 96 PG Care Time/CCT Total # of Minutes Spent Total Time Spent with Patient: Total time spent is greater than 50% in coordination of care (as documented) at patient's floor/unit and/or counseling patient:
[2019-01-20] MEDS: SENNA 8.6 MG TAB PO SCH (20:42)
[2019-01-21] MEDS ORDERED: CALCIUM CARBONATE 500 MG CHEWABLE TAB PO PRN (00:27)
[2019-01-21] MEDS: INSULIN ASPART 100 UNITS/ML 3 ML PEN SC SCH ×3 (04:23→12:59)
[2019-01-21] MEDS: KETOROLAC 30 MG/ML VIAL IV SCH ×2 (05:39→13:46)
[2019-01-21] MEDS: ACETAMINOPHEN 500 MG TAB PO SCH ×2 (05:39→13:12)
[2019-01-21 07:47] LABS: Hematocrit (blood only) 29.1 % (42-52); Hemoglobin 9.8 g/dL (14.0-18.0); Mean Corpuscular Hemoglobin 30.1 pg (25-34); Mean Corpuscular Hgb Conc 33.7 g/dL (32-36); Mean Corpuscular Volume 89.3 fL (80-100); Mean Platelet Volume 9.7 fL (7.4-10.4); Platelet Count 256 K/uL (130-400); RDW Coefficient of Variation 13.8 % (11.5-14.5); RDW Standard Deviation 45.4 fL (36.4-46.3); Red Blood Count 3.26 M/uL (4.7-6.1); White Blood Count 7.67 K/uL (4.8-10.8)
[2019-01-21] MEDS: LISINOPRIL 10 MG TAB PO SCH (08:10)
[2019-01-21] MEDS: ROSUVASTATIN CALCIUM 10 MG TAB PO SCH (08:12)
[2019-01-21] MEDS: AMLODIPINE BESYLATE 5 MG TAB PO SCH (08:12)
[2019-01-21] MEDS: MULTIVITAMIN TAB PO SCH (08:12)
[2019-01-21] MEDS: ASPIRIN 81 MG ECTAB PO SCH (08:12)
[2019-01-21] MEDS: INSULIN HUMAN 70% NPH/30% REGULAR SC SCH (08:17)
[2019-01-21] MEDS: DOCUSATE SODIUM 100 MG CAP PO SCH (08:17)
[2019-01-21 08:26] LABS: Albumin Globulin Ratio 0.9 (0.9-2); Albumin Level 2.9 gm/dl (3.4-5.0); Bilirubin,Total 0.4 mg/dl (0.2-1); Calcium 8.7 mg/dl (8.5-10.1); Creatinine Clr Calc Pharmacy 77.7 ml/min; Est GFR (African American) 77.1; Est GFR (Non-African American) 66.5; Globulin 3.3 gm/dl (2.5-4.0); Magnesium 2.1 mg/dl (1.8-2.4); Potassium 3.6 mmol/L (3.5-5.1); Total Protein 6.2 gm/dl (6.4-8.2)
--- NOTE | 2019-01-21 10:17 | Orthopedic Progress Note ---
Date of Service January 21, 2019 Assessment & Plan (1) Osteoarthritis of left hip: POD #2 s/p left ALEXA Medicine service has signed off at this time. Blood pressures are stable. Will order dressing change and Hemovac removal. WBAT LLE PT/OT ASA for DVT prophylaxsis. D/C planning--will return to [facility] upon d/c. Plan for discharge today. Subjective Postop day 2 status post left total hip arthroplasty. Patient is currently sitting up in bed. Physical therapy has arrived to work with the patient this morning. He has no overt complaints. Pain is controlled. He denies shortness of breath, chest pain, lightheadedness. He states that he had his heterotopic ossification radiation treatment yesterday. Physical Exam Physical Exam: Dressings are clean, dry, and intact. Hip appears located. Calves are soft nontender. Neurovascular intact. Toes are mobile. Hemovac drainage of 25 mL's from the previous shift. Results & Data Vital Signs (Past 12 Hours) Vital Signs Temp Pulse Pulse Pulse Resp BP Pulse Ox 01/21/19 07:03 36.9 C 76 18 132/83 96 01/21/19 04:00 37.1 C 80 20 132/83 97 01/21/19 03:38 84 01/20/19 23:21 36.9 C 85 19 140/85 95
--- NOTE | 2019-01-21 10:50 | Pharmacy Report ---
Pharmacy Glycemic Short Note 2 - Date of Service January 21, 2019 - Glycemic Short BSG Results (Last 24 hours): 01/20/19 01/20/19 01/20/19 07:35 11:36 11:38 Glucose POC Glucose 98 221 H 206 H 01/20/19 01/20/19 01/20/19 16:44 20:05 23:42 Glucose POC Glucose 181 H 211 H 98 01/21/19 01/21/19 01/21/19 04:07 07:25 07:26 Glucose 97 POC Glucose 101 H 99 OUTPATIENT ANTIDIABETIC REGIMEN: * Humulin 70/30 - 30 units BID * A1c = 8.3 % (01/20/19) ASSESSMENT: * Patient is POD #2 s/p left total hip arthroplasty * Patient received 2 doses of dexamethasone 8 mg PO daily perioperatively (last dose yesterday AM - 01/20) * BSGs ranging 99-211 over past 24 hours * Received 81 units of insulin yesterday (52 of which were basal) * Increased insulin requirements from home most likely due to dexamethasone- induced hyperglycemia * Effects of steroid should be worn off by today PLAN FOR INPATIENT GLYCEMIC CONTROL: * Basal insulin - continue home regimen * Novolin 70/30 - 30 units BIDM * Bolus insulin * NovoLog per scale ACHS or Q6hrs while NPO * Goal Range: Low 100 mg/dL - High 140 mg/dL * Correction Factor: 25 mg/dL/unit * Nutritional / Prandial insulin per carb ratio of 1 unit per 0 grams CHO consumed PLAN FOR DISCHARGE: * Continue current regimen of Novolin 70/30 30 units BID + regular insulin sliding scale * Could consider addition of metformin ER 500 mg PO daily with evening meal - titrate up to max dose of 1000 mg PO BIDM at 500 mg intervals weekly. This is considered first-line treatment of Type 2 DM.
[2019-01-21] MEDS: ONDANSETRON INJ 2 MG/ML 2 ML VIAL IV PRN ×2 (13:04→13:44)
[2019-01-21] MEDS ORDERED: CeleBREX 200 MG CAP PO SCH (21:00)
--- NOTE | 2019-01-28 13:46 | Discharge Summary ---
Date of Service January 28, 2019 Admission HPI Per Admitting Provider This is a patient who had been treated for chronic left hip pain for many years. He has failed all conservative managements and now the pain is worsening. He is being set up for a left total hip arthroplasty. Principal Diagnosis left hip osteoarthritis Discharge Exam Constitutional well developed and well nourished; no acute distress ENMT external ear and nose normal, oropharynx normal Neck trachea midline, no thyromegaly Respiratory normal respiratory effort, lungs clear to auscultation Cardiovascular Rate/Rhythm: regular rate and regular rhythm Gastrointestinal (Abdomen) normal bowel sounds, soft, nontender, no hepatosplenomegaly Musculoskeletal Gait: + limp (left) Hip: + surgical incision (left hip dressing C/D/I. ); no skin erythema and no ecchymosis Skin no rashes, warm and dry Neurologic normal touch/pain/proprioception Psychiatric A+Ox3, euthymic affect Lymphatic no cervical or axillary lymphadenopathy Discharge Data Allergies Allergy/AdvReac Type Severity Reaction Status Date / Time No Known Allergies Allergy Verified 01/19/19 08:16 Consultations 01/19/19 18:22 Consult Internal Medicine Routine Consult Radiation Oncology Routine Procedures Performed Operation Date: 07/05/18 07:00 <No data on this case meets the specified criteria> Operation Date: 01/19/19 10:10 Actual Procedures p Left Total Hip Arthroplasty, UNCEMENTED(Left) - Harley Berrios DO Ordered Studies 01/20/19 CT guide rad therapy pelvis Routine Hospital Course (1) Osteoarthritis of left hip: The patient underwent a left ALEXA on 01.19.19. His pain was controlled throughout his admission. He had experienced an elevated HR and BP the evening of POD #0 and was transferred to telemetry for monitoring. The HR and BP remained improved throughout POD #1 and POD #2. He was doing well on POD #2 and was discharged back to [facility] that day. POD #2 s/p left ALEXA Medicine service has signed off at this time. Blood pressures are stable. Will order dressing change and Hemovac removal. WBAT LLE PT/OT ASA for DVT prophylaxsis. D/C planning--will return to [facility] upon d/c. Plan for discharge today. Total Time Total Time Spent Total Time Spent (In Minutes): 30 Total Time Includes: Examination of the Patient, Discharge Planning and Medication Reconciliation Discharge Plan Discharge Items [facility] Reason For Visit: LEFT HIP OSTEOARTHRITIS Discharge Diagnosis: left hip osteoarthritis left hip degenerative joint disease Activity: Per Instructions section Bathing: No limitations Bathing Comment: Do not submerge incision. May shower and let water run over the dressing. Weightbearing: Left weightbearing Weightbearing Comment: as tolerated Non-emergency contact: Surgeon Call non-emergency contact if: your pain is not controlled, your pain is worsening and your temperature is above 101.5 Follow-up/Referrals: Vadim ESTRELLA [Primary Care Provider] - Diet: Regular Addtl Attending Provider Instructions: ACTIVITY RECOMMENDATIONS: SELF CARE INSTRUCTIONS AFTER TOTAL HIP REPLACEMENT Until the incision and soft tissues around your hip have healed, there is a possibility that the hip prosthesis could dislocate. A. Observe the following precautions to prevent dislocation: 1. Don't bend your hip greater than 90 degrees. 2. Avoid crossing your legs or ankles while standing or lying. 3. Sit with your feet placed 6 inches apart. 4. When sitting, keep your knees below your hips. Sit on a firm surface, avoid deep, soft chairs and couches. Use an elevated toilet seat in the bathroom. 5. Don't bend over at the waist. Use a long handled shoehorn and a sock aid to help you put on your shoes and socks. A tank truck milk receiver can help you knot picker cloth objects that are too high or too low to reach. 6. Keep car riding to a minimum for at least one month after surgery. B. Your balance may be shaky for a while. Use crutches or a walker until directed by your doctor. C. Use hand rails when walking on stairs. D. Wear low heeled shoes with non-slip soles. E. Be sure that your floors are free of things that could trip you - throw rugs, electrical cords, small objects. Avoid wet and waxed floors, especially with crutches and canes. F. Try to walk several times a day with rest periods between. G. Continue with all the exercises taught to you in the hospital. Again, make walking a part of your daily routine. H. It is okay to shower if minimal to no drainage from incision. No baths. Do not soak wound. I. Physical Therapy as instructed by your Physician. Harsha West: You have a Silverlon dressing on the right knee incision. It will remain in place for 7 days from your discharge from the hospital. After 7 days, you may remove the dressing, just as you would remove a bandaid. You may shower with the Silverlon dressing in place. However, if you notice any water within the dressing, the dressing should be removed. You may cover the incision with a dry dressing once the silverlon is removed if there is any drainage. K. You have a Zipline closure system over your incision. It will remain in place for 14 days after your surgery. If you have a Silverlon dressing or a large bandaid-like silver dressing over your surgical incision, make sure the Zipline under the dressing remains in place after its removal. SPECIAL CARE INSTRUCTIONS: VERY IMPORTANT TO READ AND REVIEW A. You may still be at risk for phlebitis and blood clots. 1. Wear surgical stockings (KASSANDRA hose) for one month, 20 hours daily, after surgery to improve circulation and reduce swelling. 2. Take Coumadin, Xarelto, Lovenox or Aspirin (blood thinning medications), as directed by your doctor. 3. Have a pro-time (blood test) drawn according to your doctor's instructions. B. We encourage and will assist you in choosing a home-health agency of your choice. Home health nurses and therapists will monitor your temperature, wound healing and progress in exercise and walking. Home health nurses may also draw the blood for the pro-time test. They may instruct you in decreasing or increasing the amount of Coumadin you take. C. You must take antibiotics before having dental work, bladder, bowel and other surgery. Your doctor will provide you with a permanent card to carry describing precautions. D. Call [facility] if you have a temperature of 101 or greater, redness or swelling around the incision, cloudy drainage from incision, or sudden increase in pain in your hip, not relieved by your regular pain medication. E. Please call the office at if you have any concerns or questions about your operation or recovery. FOLLOW UP VISIT: If appointment is not already scheduled: Please call [facility] to make a follow-up appointment for 2 weeks after your surgery at . Pending Studies at Discharge: No Stand-Alone Forms: My [facility] Skilled Items Patient informed of condition?: Yes Discharge Level of Care: Acute rehab Communicable Disease: No Discharge Prognosis: Stable Lines: None Urinary Catheter: No Medications and DC Order Prescriptions: New celecoxib [Celebrex] 200 mg Capsule 200 mg PO BID Qty: 60 RF: 0 aspirin [Ecotrin Low Strength] 81 mg Tablet,Delayed Release (Dr/Ec) 81 mg PO BID Qty: 60 RF: 0 acetaminophen [Tylenol Extra Strength] 500 mg Tablet 1,000 mg PO Q8 Qty: 100 RF: 0 oxycodone 5 mg Tablet 5 - 10 mg PO Q4H PRN (Reason: pain) Qty: 40 RF: 0 Continued amlodipine 5 mg Tablet 5 mg PO DAILY RF: 0 lisinopril 10 mg Tablet 10 mg PO BID RF: 0 Humulin R Regular U-100 Insuln 100 unit/mL Solution 1 sliding scale dose SUBCUT UD RF: 0 Humulin 70/30 U-100 Insulin 100 unit/mL (70-30) Suspension 30 unit SUBCUT BID RF: 0 rosuvastatin 10 mg Tablet 10 mg PO DAILY RF: 0 Discontinued aspirin [Aspirin Low Dose] 81 mg Tablet,Delayed Release (Dr/Ec) 81 mg PO DAILY RF: 0 Discharge Orders: Discharge Order (Routine); Ordered 01/21/19 Ordered By: Nahun Serrato Admission Data Admit Date/Time: 01/19/19 17:04 Attending Provider: Harley Berrios Admit Provider: Harley Berrios Primary Care Provider: Vadim ESTRELLA Other Providers: Juan Rascon ; Claudia Azul Other Interventions: Discharge Summary Assessment (RN) Last Done: 01/21/19 12:14 DC Date/Time DO NOT enter until pt leaves facility: 01/21/19 15:48
== END 2019-01-21 15:48 | DRG 470 ==
LOC: ASU 07:46 → 3E 17:04 → 2W 22:03
DX: M61.9 Calcification and ossification of muscle, unspecified; M16.12 Unilateral primary osteoarthritis, left hip; Z79.82 Long term (current) use of aspirin; E13.9 Other specified diabetes mellitus without complications; Z96.641 Presence of right artificial hip joint; E66.9 Obesity, unspecified; E78.5 Hyperlipidemia, unspecified; I10 Essential (primary) hypertension; Z68.31 Body mass index [BMI] 31.0-31.9, adult; Z79.1 Long term (current) use of non-steroidal anti-inflammatories (NSAID); Z79.899 Other long term (current) drug therapy; Z79.4 Long term (current) use of insulin